=== PATIENT | female | born 1975 | race Caucasian/White ===

== ENCOUNTER 2016-12-01 19:58 | Emergency (ER) | payer OTHER ==
[~2016-12-01] VITALS: Ht 170.2 cm; Wt 111.3 kg
[~2016-12-01 19:58] MED LIST: [UNRECOGNIZED DRUG - OTHER]
[2016-12-02 00:01] VITALS: BP 159/81
== END 2016-12-02 00:02 | disposition home or self-care (01) ==
LOC: EXP 19:58 → EME 19:58 → EXP 12-02 00:02
DX: S01.01XA Laceration without foreign body of scalp, initial encounter (principal); S06.0X0A Concussion without loss of consciousness, initial encounter; R51 Headache; E11.9 Type 2 diabetes mellitus without complications; I10 Essential (primary) hypertension; W22.8XXA Striking against or struck by other objects, initial encounter; Y92.000 Kitchen of unspecified non-institutional (private) residence as the place of occurrence of the external cause; Y99.8 Other external cause status; Z23 Encounter for immunization
CPT/HCPCS: 99281; 99283